=== PATIENT | male | born 1990 | race Two or more races ===

== ENCOUNTER → 2024-10-08 | Outpatient (CLI) | payer MEDICAID, SELFPAY ==
--- NOTE | 2024-10-08 10:15 | XR_ITS ---
EXAMINATION: PET/CT FUSION SKULL TO THIGH EXAM DATE AND TIME: October 08, 2024 1101 hours Comparison June 18, 2024 INDICATIONS: Diagnosis lymphoma restaging post treatment CTDI:vol (mGy) 3.1 DLP: (mGycm) 282.9 PROCEDURE: 15 mCi FDG was administered intravenously To allow for distribution and uptake of radiotracer, the patient was allowed to rest quietly in a shielded room. Imaging was performed on an integrated 16-slice PET/CT scanner, with scanning from the skull base to the mid thigh. Serum blood glucose at the time of the injection was measured 105 mg/dL. CT scanning was performed without oral or intravenous contrast material. FINDINGS: Head and Neck: There is no yi hypermetabolism in the neck. The visualized portions of the brain are normal in appearance on CT. Chest: There is no yi hypermetabolism in the chest. There are no pulmonary nodules. Abdomen and Pelvis: 8mm weakly hypermetabolic right external iliac lymph node Hypermetabolic 7 cm right common femoral lymph node Musculoskeletal: Osseous structures are diffusely weakly hypermetabolic IMPRESSION: Stable 7 cm hypermetabolic right common femoral lymph node Stable 8 mm weakly hypermetabolic right external iliac lymph node The hypermetabolic 20 mm left common femoral lymph node is no longer identified
== END | disposition home or self-care (01) ==
LOC: CDIM 10:15
PROVIDERS: Referring Provider Internal Medicine Hematology & Oncology; Visit Provider Internal Medicine Hematology & Oncology
DX: C82.85 Other types of follicular lymphoma, lymph nodes of inguinal region and lower limb (principal)
CPT/HCPCS: 78815; A9552

== ENCOUNTER → 2025-04-06 | Outpatient (CLI) | payer MEDICAID, SELFPAY ==
--- NOTE | 2025-04-06 14:00 | XR_ITS ---
EXAMINATION: PET/CT FUSION SKULL TO THIGH EXAM DATE AND TIME: April 06, 2025 1441 hours, comparison October 08, 2024 INDICATIONS: Diagnosis lymphoma restaging, 7 mm hypermetabolic right common femoral lymph node, 8mm hypermetabolic right external iliac lymph node CTDI:vol (mGy) 3.70 DLP: (mGycm) 337.95 PROCEDURE: 16.6 mCi FDG was administered intravenously To allow for distribution and uptake of radiotracer, the patient was allowed to rest quietly in a shielded room. Imaging was performed on an integrated 16-slice PET/CT scanner, with scanning from the skull base to the mid thigh. Serum blood glucose at the time of the injection was measured 81 mg/dL. CT scanning was performed without oral or intravenous contrast material. FINDINGS: Head and Neck: There is no yi hypermetabolism in the neck. The visualized portions of the brain are normal in appearance on CT. Chest: There is no yi hypermetabolism in the chest. There are no pulmonary nodules. Abdomen and Pelvis: There is no yi hypermetabolism in retroperitoneal or pelvic chains. The spleen is normal in size and FDG avidity. Musculoskeletal: Marrow uptake is within normal range. IMPRESSION: The weakly hypermetabolic right external iliac lymph node is no longer identified The weakly hypermetabolic right common femoral lymph node is no longer identified
== END | disposition home or self-care (01) ==
LOC: CDIM 13:42
PROVIDERS: Referring Provider Internal Medicine Hematology & Oncology; Visit Provider Internal Medicine Hematology & Oncology
DX: C82.85 Other types of follicular lymphoma, lymph nodes of inguinal region and lower limb (principal)
CPT/HCPCS: 78815; A9552